=== PATIENT | male | born 1970 ===

== ENCOUNTER 2023-01-12 11:34 | Outpatient (CLI) | payer BC, SELFPAY | END 2023-01-12 11:35 | disposition home or self-care (01) | PROVIDERS: PCP Emergency Medicine; Visit Provider Emergency Medicine | DX: Z00.00 Encounter for general adult medical examination without abnormal findings (principal); E78.5 Hyperlipidemia, unspecified; Z12.5 Encounter for screening for malignant neoplasm of prostate; Z13.1 Encounter for screening for diabetes mellitus | CPT/HCPCS: 80053; 80061; 84153 ==